=== PATIENT | female | born 1995 ===

== ENCOUNTER 2017-06-02 14:31 | Emergency (ER) | payer OTHER ==
[2017-06-02 14:33] VITALS: BP 127/77; PULSE 99; RESP 16; TEMP 97.6; O2SAT 99
[2017-06-02] MEDS ORDERED: MORPHINE SULFATE 4 MG/ML INJ IM ONE (15:30)
[2017-06-02] MEDS ORDERED: ONDANSETRON ODT 4 MG TAB PO ONE (15:30)
--- NOTE | 2017-06-02 15:34 | PD ---
HPI Chief Complaint: Musculoskeletal Complaint Time Seen by Provider: 15:14 Travel History International Travel<30 days: No Contact w/Intl Traveler<30days: No Traveled to known affect area: No History of Present Illness HPI 21-year-old female presents to the emergency department with complaint of left ankle pain after getting her foot stuck under a railing and falling approximately an hour ago. She denies hitting her head or loss of consciousness. Denies neck pain or back pain. Denies paresthesias, loss of sensation to the affected extremity. Reports swelling to the left ankle. Denies fever, vomiting. Denies chest pain, shortness of breath, abdominal pain. Rates pain 10/10. Describes pain as a throbbing sensation. Has not taken any medications or tried any chance to alleviate her symptoms. Supervisor Sunglasses did report to the scene and splinted the ankle. Allergies to penicillin. Has no other medical complaints. No other modifying factors or associated signs and symptoms. PFSH Past Medical History ?: Unknown LMP: 6 months ago Social History Tobacco Use: No Allergies-Medications (Allergen,Severity, Reaction): Coded Allergies: amoxicillin (Verified Allergy, Unknown, 06/02/17) penicillin G (Verified Allergy, Unknown, 06/02/17) Uncoded Allergies: pcn (Allergy, Unknown, 06/02/17) Review of Systems Except as stated in HPI: all other systems reviewed are Neg Physical Exam Narrative GENERAL: Well-nourished, well-developed female patient, in no acute distress SKIN: Warm and dry. HEAD: Atraumatic. Normocephalic. EYES: Pupils equal and round. No scleral icterus. No injection or drainage. ENT: Mucosa pink and moist. Airway patent. NECK: Trachea midline. CARDIOVASCULAR: Regular rate. RESPIRATORY: No accessory muscle use. GASTROINTESTINAL: Rounded. MUSCULOSKELETAL: Left ankle with point tenderness to the lateral malleolar zone with palpation; edematous; without erythema or ecchymosis; no obvious deformity. Left Lower extremity is supple and nontense with 2+ pedal pulse and sensory intact. No obvious deformities. No clubbing. No cyanosis. NEUROLOGICAL: Awake and alert. Oriented 3. No obvious cranial nerve deficits. Motor grossly within normal limits. Normal speech. PSYCHIATRIC: Appropriate mood and affect; insight and judgment normal. Data Data Last Documented VS Vital Signs Date Time Temp Pulse Resp B/P (MAP) Pulse Ox O2 Delivery O2 Flow Rate FiO2 06/02/17 15:52 80 18 06/02/17 14:33 97.6 127/77 (94) 99 Room Air Orders Orders Ankle, Complete ([id number]) (06/02/17 15:25) Ice/Cold Pack (06/02/17 15:25) Crutches (06/02/17 15:25) Morphine Inj (Morphine Inj) (06/02/17 15:30) Ondansetron Odt (Zofran Odt) (06/02/17 15:30) MDM Medical Decision Making Medical Screen Exam Complete: Yes Emergency Medical Condition: Yes Medical Record Reviewed: Yes Differential Diagnosis Ankle fracture, ankle sprain, ankle injury Narrative Course 21-year-old female with left ankle injury. Morphine, Zofran ordered. Left ankle x-ray ordered. 1612: Left ankle x-ray concludes: Small avulsion off the inferior aspect of the lateral malleolus. X-ray report provided to the patient. Villavicencio splint ordered. Crutches provided for support. [place] and ibuprofen prescribed for home. Instructed patient to follow up with orthopedics. Instructed patient to follow up with primary care provider. Patient verbalizes understanding and agreement with treatment plan. Patient is medically cleared and stable for discharge. Discussed reasons to return to the emergency department. Patient agrees with treatment plan. The patients vital signs are stable and the patient is stable for outpatient follow-up and treatment. Patient discharged home, stable and in no acute distress. Diagnosis Primary Impression: Closed left ankle fracture Qualified Codes: S82.892A - Other fracture of left lower leg, initial encounter for closed fracture Referrals: Orthopaedic Surgeon Primary Care Physician Patient Instructions: Ankle Fracture (ED), Crutch Instructions (ED), General Instructions Departure Forms: Tests/Procedures, Work Release Special Instructions: No work until cleared by primary care provider or orthopedics Additional Instructions: Tylenol or ibuprofen as directed and as needed for pain and inflammation Rest, ice, compress, and elevate extremity to decrease pain and inflammation Splint for support; do not remove splint until cleared by orthopedics Crutches for support; do not bear weight on the affected extremity until cleared by orthopedics Avoid aggravating activity; increase activity as tolerated Follow-up with primary care provider Return to the emergency department immediately with worsening of symptoms Med/Other Pt SpecificInfo: Prescription(s) given Scripts Ibuprofen (Ibuprofen) 800 Mg Tab 800 MG PO Q6HR Y for PAIN, #30 TAB 0 Refills Prov: Purvi Zambrano 06/02/17 Hydrocodone-Acetaminophen ([place]) 5 Mg-325 Mg Tab 1 TAB PO Q4H Y for PAIN, #20 TAB 0 Refills Prov: Purvi Zambrano 06/02/17 Disposition: 01 DISCHARGE HOME Condition: Stable Purvi Zambrano Jun 02, 2017 15:34
--- NOTE | 2017-06-02 16:04 | RADRPT ---
EXAM DATE/TIME: 06/02/2017 15:52 [facility] COMPARISON: No previous studies available for comparison. INDICATIONS : Left ankle pain; fall downstairs today. MEDICAL HISTORY : None. SURGICAL HISTORY : None. ENCOUNTER: Initial ACUITY: 1 day PAIN SCORE: 9/10 LOCATION: Left lateral ankle FINDINGS: There is a small avulsion off the inferior aspect of the lateral malleolus. The remainder of the osse ous structures are intact. There is diffuse soft tissue swelling. CONCLUSION: 1. Small avulsion off the inferior aspect of the lateral malleolus. 2. Diffuse soft tissue swelling. Nikita Fernandez MD on June 02, 2017 at 16:02 Board Certified Radiologist. This report was verified electronically.
[2017-06-02] MEDS ORDERED: IBUP1TAB7 PO (16:22)
[2017-06-02] MEDS ORDERED: NORC5TAB PO (16:22)
== END 2017-06-02 17:28 | disposition home or self-care (01) ==
LOC: NEPK 14:31
DX: S82.892A Other fracture of left lower leg, initial encounter for closed fracture (principal); W19.XXXA Unspecified fall, initial encounter
CPT/HCPCS: 73610; 96372; 99285; E0113; J2270